=== PATIENT | female | born 1955 | race Caucasian/White ===

== ENCOUNTER → 2018-04-07 | Outpatient (CLI) | payer OTHER ==
--- NOTE | 2018-04-07 14:10 | XR ---
EXAMINATION TYPE: XR chest 2V DATE OF EXAM: 04/07/2018 COMPARISON: Prior x-ray October 23, 2013 HISTORY: Productive and dry cough for 3 weeks. TECHNIQUE: Frontal and lateral views of the chest are obtained. FINDINGS: There is no focal air space opacity, pleural effusion, or pneumothorax seen. The cardiac silhouette size is within normal limits. The osseous structures are intact. IMPRESSION: No suspicious acute infiltrate. No significant change from prior.
== END ==
LOC: RADXRMAIN 13:35
PROVIDERS: ATTEND Family Medicine
DX: R05 Cough (principal)
CPT/HCPCS: 71046

== ENCOUNTER → 2021-11-19 | Outpatient (CLI) | payer OTHER ==
--- NOTE | 2021-11-20 10:57 | MM ---
Reason for exam: screening (asymptomatic). Last mammogram was performed 9 years and 6 months ago. History: Patient is postmenopausal and had first child at age 34. Family history of breast cancer in maternal aunt. Physical Findings: A clinical breast exam by your physician is recommended on an annual basis and results should be correlated with mammographic findings. MG 3D Screening Mammo W/Cad Bilateral CC and MLO view(s) were taken. Prior study comparison: May 31, 2012, bilateral digital screening mammo w/CAD. November 20, 2004, bilateral screening mammogram. The breast tissue is heterogeneously dense. This may lower the sensitivity of mammography. No significant changes when compared with prior studies. ASSESSMENT: Benign, BI-RAD 2 RECOMMENDATION: Routine screening mammogram of both breasts in 1 year.
== END | disposition home or self-care (01) ==
LOC: RADMAMWWP 08:07
PROVIDERS: ATTEND Obstetrics & Gynecology
DX: Z12.31 Encounter for screening mammogram for malignant neoplasm of breast (principal); Z78.0 Asymptomatic menopausal state; Z80.3 Family history of malignant neoplasm of breast
CPT/HCPCS: 77063; 77067

== ENCOUNTER 2022-03-17 10:02 | Day surgery (SDC) | payer OTHER ==
[2022-03-16 10:23] VITALS: BMI 21.9
[~2022-03-17 10:02] MED LIST: LACTATED RINGERS 1,000 ML IV SCH; LIDOCAINE 1% (10MG/ML) FOR IV START INTRADERMA PRN
[2022-03-17 10:32] VITALS: TEMP 97
[2022-03-17] MEDS ORDERED: PROPOFOL 10 MG/ML 20 ML VIAL IV ONE (10:50)
[2022-03-17] MEDS ORDERED: LIDOCAINE 2% INJ 20 MG/ML (2 ML VIAL) ONE (10:50)
--- NOTE | 2022-03-17 10:57 | P.GSHP ---
History of Present Illness H&P Date: 03/17/22 Chief Complaint: GERD, screening 66-year-old female here today for upper and lower endoscopy. Last colonoscopy about 10 years ago. History of diverticulitis in the past. No family history of colon cancer. Patient has mild reflux. No history of previous EGD. Past Medical History Past Medical History: CVA/TIA, GERD/Reflux, Thyroid Disorder Additional Past Medical History / Comment(s): migraines, TIA 29 yrs ago, diverticulitis,"prediabetic"-states does not follow special diet, History of Any Multi-Drug Resistant Organisms: None Reported Past Surgical History: Orthopedic Surgery Additional Past Surgical History / Comment(s): rt knee arthroscopy Past Anesthesia/Blood Transfusion Reactions: Postoperative Nausea & Vomiting (PONV) Smoking Status: Never smoker - Past Family History Mother Family Medical History: No Reported History Medications and Allergies Home Medications Medication Instructions Recorded Confirmed Type Levothyroxine Sodium [Synthroid] 75 mcg PO DAILY 03/16/22 03/17/22 History Allergies Allergy/AdvReac Type Severity Reaction Status Date / Time ciprofloxacin [From Cipro] Allergy Rash/Hives Verified 03/17/22 10:20 ciprofloxacin HCl Allergy Rash/Hives Verified 03/17/22 10:20 [From Cipro] erythromycin base Allergy Rash/Hives Verified 03/17/22 10:20 metronidazole [From Flagyl] Allergy Rash/Hives Verified 03/17/22 10:20 Penicillins Allergy Rash/Hives Verified 03/17/22 10:20 Sulfa (Sulfonamide Allergy Rash/Hives Verified 03/17/22 10:20 Antibiotics) Surgical - Exam Vital Signs Temp Pulse Resp BP Pulse Ox 97.0 F L 64 15 164/75 96 03/17/22 10:30 03/17/22 10:30 03/17/22 10:30 03/17/22 10:30 03/17/22 10:30 Physical exam: General: Well-developed, well-nourished HEENT: Normocephalic, sclerae nonicteric Abdomen: Nontender, nondistended Extremities: No edema Neuro: Alert and oriented Assessment and Plan (1) Colon cancer screening Narrative/Plan: Will proceed with upper and lower endoscopy Current Visit: Yes Status: Acute Code(s): Z12.11 - ENCOUNTER FOR SCREENING FOR MALIGNANT NEOPLASM OF COLON SNOMED Code(s): 061690328
--- NOTE | 2022-03-17 11:19 | P.PCN ---
Date of Procedure: 03/17/22 Procedure(s) Performed: PREOPERATIVE DIAGNOSIS: GERD, screening POSTOPERATIVE DIAGNOSIS: Gastritis with small erosions, diverticulosis, tortuous colon PROCEDURE: 1. EGD with biopsy 2. Colonoscopy unable to pass mid sigmoid ANESTHESIA: MAC SURGEON: Celso Barbour M.D. SPECIMENS: Antrum, body ENDOSCOPIC PROCEDURE: The patient was on the endoscopy table in the left decubitus position. The Olympus gastroscope was inserted into the oropharynx and passed under direct visualization to the region of the third portion of the duodenum. From that point the scope was slowly withdrawn inspecting all surfaces carefully. There were no neoplastic inflammatory or polypoid lesions throughout the duodenum. The pylorus was widely patent. The stomach was carefully inspected. There was gastritis present. A few small erosions were seen. Biopsies of both the antrum and the body of the stomach took place. Re troflexion revealed a normal hiatus. The esophagus was then carefully examined. There were no neoplastic inflammatory or polypoid lesions throughout the visualized esophagus. The patient was kept on the endoscopy table in the left decubitus position. The Olympus colonoscope was inserted into the anus and passed under direct visualization to the mid sigmoid colon. The patient had diverticulosis present. There was significant tortuosity of the sigmoid and I could not get the scope to pass beyond that point despite multiple position changes and abdominal wall pressure. There was no significant inflammation or polyps seen in the sigmoid or rectum. Digital rectal examination was normal. The patient was taken to the recovery room in stable condition per anesthesia guidelines. RECOMMENDATIONS: Await biopsy results. Will discuss inability to pass sigmoid colon with patient. Recommend colonoscopy later today or tomorrow.
[2022-03-17 11:24] VITALS: RESP 16
[2022-03-17 11:55] VITALS: BP 107/41; PULSE 64
== END 2022-03-17 12:33 | disposition home or self-care (01) ==
LOC: ORWHC2ENDO 10:02
PROVIDERS: ATTEND Surgery
DX: Z12.11 Encounter for screening for malignant neoplasm of colon (principal); K57.30 Diverticulosis of large intestine without perforation or abscess without bleeding; Q43.8 Other specified congenital malformations of intestine; K21.9 Gastro-esophageal reflux disease without esophagitis; K29.50 Unspecified chronic gastritis without bleeding
CPT/HCPCS: 88305; 43239; J2704; J2001; G0104; 45378

== ENCOUNTER → 2023-01-18 | Outpatient (CLI) | payer OTHER ==
--- NOTE | 2023-01-19 10:17 | MM ---
Reason for Exam: Screening (asymptomatic). Last mammogram was performed 1 year(s) and 2 month(s) ago. Patient History: Menarche at age 12. First Full-Term at age 34. Late child-bearing (after 30). Postmenopausal. Maternal aunt had breast cancer, age 50. Risk Values: Naomi 5 year model risk: 2.5%. NCI Lifetime model risk: 9.4%. Prior Study Comparison: 11/20/2004 Bilateral Screening Mammogram, [facility]. 05/31/2012 Bilateral Screening Mammogram, [facility]. 11/19/2021 Bilateral Screening Mammogram, [facility]. Tissue Density: The breast tissue is heterogeneously dense. This may lower the sensitivity of mammography. Findings: Analyzed By CAD. There is no suspicious group of microcalcifications or new suspicious mass in either breast. Overall Assessment: Negative, BI-RAD 1 Management: Screening Mammogram of both breasts in 1 year. Some advise bilateral breast ultrasound surveillance in patients with background dense tissue. Patient should continue monthly self-breast exams. A clinical breast exam by your physician is recommended on an annual basis. This exam should not preclude additional follow-up of suspicious palpable abnormalities. Note on Naomi scores and lifetime risk: 1. A Naomi score greater than 3% is considered moderate risk. If this is the case, consider specialist referral to assess eligibility for a risk reducing agent. 2. If overall lifetime risk for the development of breast cancer is 20% or higher, the patient may qualify for future screening with alternating mammogram and breast MRI. Electronically signed and approved by: Ezekiel Auguste M.D.
== END | disposition home or self-care (01) ==
LOC: RADMAMWWP 15:07
PROVIDERS: ATTEND Obstetrics & Gynecology
DX: Z12.31 Encounter for screening mammogram for malignant neoplasm of breast (principal); Z78.0 Asymptomatic menopausal state; Z80.3 Family history of malignant neoplasm of breast
CPT/HCPCS: 77063; 77067

== ENCOUNTER → 2024-01-20 | Outpatient (CLI) | payer MEDICARE ==
--- NOTE | 2024-01-24 09:29 | MM ---
Reason for Exam: Screening (asymptomatic). Last screening mammogram was performed 12 month(s) ago. Patient History: Menarche at age 12. First Full-Term at age 34. Late child-bearing (after 30). Postmenopausal. Maternal aunt had breast cancer, age 50. Risk Values: Naomi 5 year model risk: 2.5%. NCI Lifetime model risk: 9.0%. Prior Study Comparison: 05/31/2012 Bilateral Screening Mammogram, [facility]. 11/19/2021 Bilateral Screening Mammogram, [facility]. 01/18/2023 Bilateral MG 3D screening mammo w/cad, [facility]. Tissue Density: The breasts are heterogeneously dense, which may obscure small masses. Findings: Analyzed By CAD. There is no suspicious group of microcalcifications or new suspicious mass in either breast. Overall Assessment: Benign, BI-RAD 2 Management: Screening Mammogram of both breasts in 1 year. . Patient should continue monthly self-breast exams. A clinical breast exam by your physician is recommended on an annual basis. This exam should not preclude additional follow-up of suspicious palpable abnormalities. Note on Naomi scores and lifetime risk: 1. A Naomi score greater than 3% is considered moderate risk. If this is the case, consider specialist referral to assess eligibility for a risk reducing agent. 2. If overall lifetime risk for the development of breast cancer is 20% or higher, the patient may qualify for future screening with alternating mammogram and breast MRI. Electronically signed and approved by: Jose Dumont M.D. Radiolog[facility]
== END | disposition home or self-care (01) ==
LOC: RADMAMWWP 13:51
PROVIDERS: ATTEND Obstetrics & Gynecology
DX: Z12.31 Encounter for screening mammogram for malignant neoplasm of breast (principal); Z78.0 Asymptomatic menopausal state; Z80.3 Family history of malignant neoplasm of breast
CPT/HCPCS: 77063; 77067

== ENCOUNTER → 2025-01-17 | Outpatient (CLI) | payer MEDICARE ==
[2025-01-17 15:08] LABS: HCT 37.2 % (37.2-46.3); HGB 12.3 g/dL (12.0-15.0); MCH 30.6 pg (27.0-32.0); MCHC 33.1 g/dL (32.0-37.0); MCV 92.5 FL (80.0-97.0); Mean Platelet Volume 9.6 FL (9.5-12.2); NRBC Per 100 WBC 0 X 10*3/uL (0.00-0.01); Platelet Count 272 X 10*3/uL (140-440); RBC 4.02 X 10*6/uL (4.10-5.20); WBC 4.48 X 10*3/uL (4.50-10.00)
[2025-01-17 15:09] LABS: Basophils # (A) 0.08 X 10*3/uL (0.00-0.10); Basophils % (A) 1.8 %; Eosinophils # (A) 0.07 X 10*3/uL (0.04-0.35); Eosinophils % (A) 1.6 %; Lymphocytes # (A) 2.01 X 10*3/uL (0.90-5.00); Lymphocytes % (A) 44.9 %; Monocytes % (A) 8.9 %; Neutrophils # (A) 1.91 X 10*3/uL (1.80-7.70); Neutrophils % (A) 42.6 %
[2025-01-17 15:28] LABS: Chol/HDL Ratio 3.79 Ratio; VLDL Calculation 13.76 mg/dL (5.00-40.00)
[2025-01-17 15:29] LABS: T4, Free (Free Thyroxine) 1.44 ng/dL (0.80-1.80)
[2025-01-17 16:02] LABS: ALT 26 U/L (8-44); AST 34 U/L (13-35); Albumin 4.3 g/dL (3.8-4.9); Albumin/Globulin Ratio 1.87 Ratio (1.60-3.17); Alkaline Phosphatase 57 U/L (41-126); BUN/Creat Ratio 19.44 Ratio (12.00-20.00); Blood Urea Nitrogen 17.5 mg/dL (9.0-27.0); Calcium 9.1 mg/dL (8.7-10.3); Carbon Dioxide 23.6 mmol/L (21.6-31.8); Chloride 103 mmol/L (96-109); Globulin 2.3 g/dL (1.6-3.3); Glucose 98 mg/dL (70-110); Potassium 4.4 mmol/L (3.5-5.5); Sodium 138 mmol/L (135-145); Total Bilirubin 0.4 mg/dL (0.3-1.2); Total Protein 6.6 g/dL (6.2-8.2)
== END | disposition home or self-care (01) ==
LOC: LABWHC1 11:18
PROVIDERS: ATTEND Family Medicine
DX: I10 Essential (primary) hypertension (principal); Z79.899 Other long term (current) drug therapy
CPT/HCPCS: 36415; 80053; 80061; 84439; 84443; 85025